=== PATIENT | female | born 2000 | race Caucasian/White ===

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

== ENCOUNTER 2022-02-20 07:55 | Emergency (ER) | payer OTHER ==
[~2022-02-20] VITALS: Ht 152.4 cm; Wt 47.9 kg
[~2022-02-20 07:55] MED LIST changes: +ONDA-188 PO; +POTA20TA PO
[2022-02-20 07:58] VITALS: BP 128/85
[2022-02-20] MEDS ORDERED: ONDANSETRON 4 MG ODT PO ONE (08:10)
[2022-02-20] MEDS ORDERED: ALBUTEROL SULFATE/IPRATROPIU 3 ML SOL IH ONE (09:05)
[2022-02-20] MEDS ORDERED: ALBUTEROL 0.083% 2.5 MG/3 ML NEBU INH ONE (09:05)
[2022-02-20] MEDS ORDERED: NACL 0.9% 1,000 ML IV ONE (09:15)
[2022-02-20] MEDS ORDERED: ONDANSETRON 4 MG/2 ML VIAL IVP ONE (09:15)
[2022-02-20] MEDS ORDERED: KETOROLAC 30 MG/ML VIAL IVP ONE (10:00)
[2022-02-20] MEDS ORDERED: diphenhydrAMINE 50 MG/ML VIAL IVP ONE (11:05)
[2022-02-20] MEDS ORDERED: METOCLOPRAMIDE 10 MG/2 ML INJ VIAL IVP ONE (11:05)
[2022-02-20] MEDS ORDERED: ONDA8TAB87 PO (13:01)
[2022-02-20] MEDS ORDERED: IBUP-2213 PO (13:01)
[2022-02-20 13:14] VITALS: BP 111/56
== END 2022-02-20 13:14 | disposition home or self-care (01) ==
LOC: MED 07:55
DX: R07.89 Other chest pain (principal); R11.2 Nausea with vomiting, unspecified; R06.02 Shortness of breath; J45.909 Unspecified asthma, uncomplicated; Z79.899 Other long term (current) drug therapy
CPT/HCPCS: 81002; 81025; 93005; 94640; 94664; 96361; 96374; 96375; 99285; J1200; J1885; J2405; J2765; J7030; J7613; Q0162

== ENCOUNTER 2022-08-17 23:55 | Inpatient (IN) | payer OTHER ==
[~2022-08-17] VITALS: Ht 152.4 cm; Wt 52.6 kg
[~2022-08-17 23:55] MED LIST changes: +IBUP-2213 PO; +ONDA8TAB87 PO
[2022-08-18 00:16] VITALS: BP 100/60
--- NOTE | 2022-08-18 00:20 | NUR ---
TO BED 9 FOLLOWING TRIAGE
[2022-08-18] MEDS ORDERED: LORazepam 0.5 MG TAB PO ONE (00:35)
[2022-08-18] MEDS ORDERED: ONDANSETRON 4 MG ODT PO ONE (00:35)
[2022-08-18 00:44] LABS: APPEARANCE,URINE SL CLOUDY (CLEAR); BILIRUBIN,URINE NEGATIVE (NEGATIVE); BLOOD, URINE NEGATIVE (NEGATIVE); COLOR,URINE YELLOW (YELLOW); LEUKOCYTE ESTERASE ,URINE NEGATIVE (NEGATIVE); NITRITE, URINE NEGATIVE (NEGATIVE); PH,URINE 8.5 (5.0-9.0); UGLUCOSE NEGATIVE (NEGATIVE)
--- NOTE | 2022-08-18 00:44 | NUR ---
UA SENT TO LAB
[2022-08-18] MEDS ORDERED: FAMOTIDINE 20 MG/2 ML VIAL IVP ONE (01:05)
[2022-08-18] MEDS ORDERED: METOCLOPRAMIDE 10 MG/2 ML INJ VIAL IVP ONE (01:05)
[2022-08-18] MEDS ORDERED: NACL 0.9% 1,000 ML IV ONE ×3 (01:05→04:45)
[2022-08-18] MEDS ORDERED: diphenhydrAMINE 50 MG/ML VIAL IVP ONE (01:05)
--- NOTE | 2022-08-18 01:16 | NUR ---
20G TO LT UPPER ARM ESTABLISHED. BLOOD DRAWN VIA IV START
[2022-08-18 01:24] LABS: BASOPHILS % (AUTO) 0.1 % (0.0-2.0); EOSINOPHILS % (AUTO) 0.2 % (0.0-4.0); HEMATOCRIT 39.5 % (36-48); HEMOGLOBIN 13.3 g/dL (12.0-16.0); LYMPHOCYTES # (AUTO) 0.6 K/uL (2.5-16.5); LYMPHOCYTES % (AUTO) 3.3 % (20.5-51.1); MEAN CORPUSCULAR HEMOGLOBIN 30 pg (27-31); MEAN CORPUSCULAR HGB CONC 34 g/dL (33-37); MONOCYTES # (AUTO) 1.2 K/uL (0.8-1.0); MONOCYTES % (AUTO) 6.1 % (1.7-9.3); NEUTROPHILS # (AUTO) 17.2 K/uL (1.8-7.7); NEUTROPHILS % (AUTO) 90.3 % (42.2-75.2); PLATELET COUNT (AUTO) 240 K/uL (140-450); RED BLOOD CELL COUNT(AUTO) 4.49 MIL/uL (4.20-5.40); RED CELL DISTRIBUTION WIDTH 13.7 % (11.6-13.7); WHITE BLOOD COUNT (AUTO) 19.1 K/uL (4.5-11.0)
[2022-08-18 02:00] LABS: BARBITURATE, URINE NEGATIVE ng/ml (NEG <=200); BENZODIAZEPINE, URINE NEGATIVE ng/mL (NEG <=200); CANNABINOID, URINE POSITIVE ng/mL (NEG <=50); COCAINE, URINE NEGATIVE ng/mL (NEG <=300); OPIATE, URINE NEGATIVE ng/mL (NEG <=2000); PHENCYCLIDINE SCREEN,URINE NEGATIVE ng/mL (NEG <=25)
[2022-08-18 02:02] LABS: ALBUMIN 4.9 g/dL (3.4-5.0)
[2022-08-18 02:07] LABS: ANION GAP 26.4 (8-16); CARBON DIOXIDE 17.6 mmol/L (21-32); CREATININE 0.7 mg/dL (0.6-1.3)
[2022-08-18] MEDS ORDERED: LORazepam 2 MG/ML VIAL IVP ONE (02:10)
[2022-08-18] MEDS ORDERED: HALOPERIDOL IM 5 MG/ML VIAL IVP ONE (02:10)
[2022-08-18 02:35] LABS: TOTAL BILIRUBIN 2.1 mg/dL (0.0-1.0)
[2022-08-18] MEDS ORDERED: POTASSIUM CHLORIDE 10 MEQ TABER PO ONE ×2 (02:35→04:46)
--- NOTE | 2022-08-18 04:58 | NUR ---
PT UNABLE TO DRINK WATER OR TAKE MEDICATION WITHOUT VOMITING. DR. SIMENTAL AWARE AND WILL ADMIT.
[2022-08-18] MEDS ORDERED: HALOPERIDOL IM 5 MG/ML VIAL ONE (05:03)
--- NOTE | 2022-08-18 06:30 | NUR ---
Patient appears to be resting comfortably in bed. Vital Signs within normal limits. Respirations even and unlabored.
--- NOTE | 2022-08-18 06:39 | NUR ---
MOTHER ALLOWED AT BEDSIDE WITH PT FOR A BRIEF VISIT. UPDATED MOTHER ON POC OK WITH PT. AWIAITING BED ASSIGNMENT
[2022-08-18 06:43] VITALS: BP 113/70
--- NOTE | 2022-08-18 07:25 | NUR ---
Report recieved from COY Jackson for transfer of care.
--- NOTE | 2022-08-18 07:29 | NUR ---
REPORT TO YUNG CESPEDES
[2022-08-18] MEDS ORDERED: ZOLPIDEM 10 MG TAB PO PRN (08:25)
[2022-08-18] MEDS ORDERED: MORPHINE SULFATE 2 MG/ML SYR IVP PRN (08:25)
[2022-08-18] MEDS ORDERED: MAG SULF 2000 MG/WATER PREMIX 50 ML IV PRN (08:25)
[2022-08-18] MEDS ORDERED: ONDANSETRON 4 MG/2 ML VIAL IVP PRN (08:25)
[2022-08-18] MEDS ORDERED: DOCUSATE SODIUM 100 MG GELCAP PO PRN (08:25)
[2022-08-18] MEDS ORDERED: LORazepam 2 MG/ML VIAL IVP PRN (08:25)
[2022-08-18] MEDS ORDERED: POTASSIUM CHLORIDE 10 MEQ TABER PO PRN (08:25)
[2022-08-18] MEDS ORDERED: ACETAMINOPHEN 325 MG TAB PO PRN (08:25)
[2022-08-18] MEDS ORDERED: NACL 0.9% 1,000 ML IV SCH (08:25)
--- NOTE | 2022-08-18 10:11 | NUR ---
Patient ambulated to restroom with steady gait.
--- NOTE | 2022-08-18 10:20 | NUR ---
PT ASKING ABOUT HER BELONGINGS, CALLED PTS MOTHER-RAJ, STATED SHE TOOK HER BELONGINGS WHEN SHE VISITED. PT MADE AWARE.
--- NOTE | 2022-08-18 10:30 | NUR ---
PATIENT HAS BEEN SCREENED AND CATEGORIZED MODERATE NUTRITION RISK. PATIENT WILL BE SEEN WITHIN 3-5 DAYS OF ADMISSION. REVIEWED BY DELROY GODDARD RD
--- NOTE | 2022-08-18 11:15 | NUR ---
PT MOVED TO ER BED 8
--- NOTE | 2022-08-18 13:15 | NUR ---
Patient requesting to leave. Explained to patient no dischage orders at this time. Explained Dr. Griffith is not here to explain AMA. Patient still wanted to leave AMA. Dr. Griffith notified.
--- NOTE | 2022-08-18 13:15 | NUR ---
Note glenna in ED - 08/18/22 at 1342 by VANESSA Patient does not wish to proceed with medical care recommended by Dr. Griffith. Patient given information related to possible complications, up to and including , which could occur as a result of leaving hospital at this time. Patient verbalizes understanding of risks involved leaving against medical advice. Patient has signed AMA form.
== END 2022-08-18 13:15 | disposition left against medical advice (07) | DRG 249 ==
LOC: MED 23:55 → MMU 08-18 06:06
PROVIDERS: ADMIT Family Medicine; ATTEND Family Medicine
DX: R11.10 Vomiting, unspecified (principal); E87.20 Acidosis, unspecified; E86.0 Dehydration; Z20.822 Contact with and (suspected) exposure to COVID-19; J45.909 Unspecified asthma, uncomplicated; E87.6 Hypokalemia; Z53.29 Procedure and treatment not carried out because of patient's decision for other reasons; F12.920 Cannabis use, unspecified with intoxication, uncomplicated
CPT/HCPCS: 36415; 80053; 80305; 81003; 83690; 85025; 96361; 96372; 96374; 96375; 99291; J1200; J1630; J2060; J2765; J3490; J7030; Q0162

== ENCOUNTER 2022-11-03 13:23 | Emergency (ER) | payer OTHER ==
[~2022-11-03] VITALS: Ht 152.4 cm; Wt 51.3 kg
[2022-11-03 13:39] VITALS: BP 124/65
--- NOTE | 2022-11-03 14:50 | NUR ---
TO ER BED 9
[2022-11-03 15:05] LABS: APPEARANCE,URINE CLEAR (CLEAR); BILIRUBIN,URINE NEGATIVE (NEGATIVE); BLOOD, URINE NEGATIVE (NEGATIVE); COLOR,URINE YELLOW (YELLOW); LEUKOCYTE ESTERASE ,URINE NEGATIVE (NEGATIVE); NITRITE, URINE NEGATIVE (NEGATIVE); UGLUCOSE NEGATIVE (NEGATIVE)
[2022-11-03] MEDS ORDERED: ONDANSETRON 4 MG ODT PO ONE (15:20)
[2022-11-03] MEDS ORDERED: IBUP-2213 PO (15:29)
[2022-11-03] MEDS ORDERED: ONDA8TAB87 PO (15:29)
[2022-11-03] MEDS ORDERED: LOPE-289 PO (15:29)
[2022-11-03] MEDS ORDERED: OMEP40EC24 PO (15:29)
[2022-11-03] MEDS ORDERED: ONDANSETRON 4 MG/2 ML VIAL IVP ONE ×2 (15:35→16:10)
[2022-11-03] MEDS ORDERED: NACL 0.9% 1,000 ML IV ONE (15:35)
[2022-11-03] MEDS ORDERED: ONDANSETRON 4 MG/2 ML VIAL ONE (15:36)
[2022-11-03] MEDS ORDERED: HALOPERIDOL IM 5 MG/ML VIAL IM ONE (16:40)
--- NOTE | 2022-11-03 17:13 | NUR ---
NO RELIEF FROM ZOFRAN IV. ADMITS TO CHRONIC THC USE. AMBULATES TO BR TO VOID URINE, KEEPS ADKING TO DRINK HER GATORADE EVEN WHEN VOMITING
--- NOTE | 2022-11-03 17:34 | NUR ---
Patient discharged with v/s stable. Written and verbal after care instructions given and explained. Patient verbalized understanding. Ambulatory with steady gait. All questions addressed prior to discharge. Advised to follow up with PMD.
== END 2022-11-03 17:33 | disposition home or self-care (01) ==
LOC: MED 13:23
DX: R11.2 Nausea with vomiting, unspecified (principal); R19.7 Diarrhea, unspecified; R10.13 Epigastric pain; J45.909 Unspecified asthma, uncomplicated; F12.90 Cannabis use, unspecified, uncomplicated; Z79.1 Long term (current) use of non-steroidal anti-inflammatories (NSAID); Z79.899 Other long term (current) drug therapy
CPT/HCPCS: 81003; 81025; 96361; 96372; 96374; 96376; 99284; J1630; J2405; J7030; Q0162

== ENCOUNTER 2022-11-03 18:37 | Inpatient (IN) | payer OTHER ==
[~2022-11-03] VITALS: Ht 152.4 cm; Wt 51.3 kg
[~2022-11-03 18:37] MED LIST changes: +LOPE-289 PO; +OMEP40EC24 PO
[2022-11-03 18:42] VITALS: BP 122/78
[2022-11-03] MEDS ORDERED: ONDANSETRON 4 MG/2 ML VIAL IVP ONE ×2 (18:45→21:10)
--- NOTE | 2022-11-03 18:45 | NUR ---
PT AMB TO BED 3
--- NOTE | 2022-11-03 18:49 | NUR ---
LAB AT BEDSIDE
[2022-11-03 18:54] LABS: BASOPHILS % (AUTO) 0.2 % (0.0-2.0); EOSINOPHILS % (AUTO) 0.2 % (0.0-4.0); HEMATOCRIT 40.8 % (36-48); HEMOGLOBIN 13.5 g/dL (12.0-16.0); LYMPHOCYTES # (AUTO) 0.5 K/uL (2.5-16.5); LYMPHOCYTES % (AUTO) 2.1 % (20.5-51.1); MEAN CORPUSCULAR HEMOGLOBIN 29 pg (27-31); MEAN CORPUSCULAR HGB CONC 33 g/dL (33-37); MEAN CORPUSCULAR VOLUME 87.1 fL (80-94); MONOCYTES # (AUTO) 0.9 K/uL (0.8-1.0); NEUTROPHILS # (AUTO) 20.1 K/uL (1.8-7.7); NEUTROPHILS % (AUTO) 93.5 % (42.2-75.2); PLATELET COUNT (AUTO) 270 K/uL (140-450); RED BLOOD CELL COUNT(AUTO) 4.69 MIL/uL (4.20-5.40); RED CELL DISTRIBUTION WIDTH 13.6 % (11.6-13.7); WHITE BLOOD COUNT (AUTO) 21.5 K/uL (4.5-11.0)
[2022-11-03] MEDS ORDERED: NACL 0.9% 1,000 ML IV ONE (18:55)
--- NOTE | 2022-11-03 19:06 | NUR ---
XRAY AT BEDSIDE
[2022-11-03] MEDS ORDERED: LORazepam 2 MG/ML VIAL IVP ONE (19:10)
[2022-11-03 19:20] LABS: ALBUMIN 4.6 g/dL (3.4-5.0); ANION GAP 20.8 (8-16); CARBON DIOXIDE 19.3 mmol/L (21-32); CREATININE 0.9 mg/dL (0.6-1.3); POTASSIUM 3.1 mmol/L (3.5-5.1); TOTAL BILIRUBIN 2.4 mg/dL (0.0-1.0)
--- NOTE | 2022-11-03 19:21 | NUR ---
REPORT GIVEN TO KYLE RN. TRANSFER OF CARE AT THIS TIME
--- NOTE | 2022-11-03 19:30 | NUR ---
COVID-19 swab and urine sample collected and sent to lab
[2022-11-03 19:58] LABS: APPEARANCE,URINE CLEAR (CLEAR); BILIRUBIN,URINE NEGATIVE (NEGATIVE); BLOOD, URINE 1+ (NEGATIVE); COLOR,URINE YELLOW (YELLOW); LEUKOCYTE ESTERASE ,URINE NEGATIVE (NEGATIVE); NITRITE, URINE NEGATIVE (NEGATIVE); UGLUCOSE NEGATIVE (NEGATIVE)
[2022-11-03 20:13] LABS: WBC,URINE 0-5 /HPF (0-5)
--- NOTE | 2022-11-03 20:44 | NUR ---
PT AMBULATED TO RR AND BACK TO BED WITH STEADY GAIT
--- NOTE | 2022-11-03 20:50 | NUR ---
PT MOVED TO ER BED 6
--- NOTE | 2022-11-03 21:02 | NUR ---
Patient reported, nausea, no relief, Dr. Mckinney notified.
[2022-11-03] MEDS ORDERED: ONDANSETRON 4 MG/2 ML VIAL IVP PRN (21:20)
[2022-11-03] MEDS ORDERED: KCL 20 MEQ IN 100 mL PREMIX 200 ML IV PRN (21:20)
[2022-11-03] MEDS ORDERED: MORPHINE SULFATE 4 MG/ML SYR IVP PRN (21:20)
[2022-11-03] MEDS ORDERED: METOCLOPRAMIDE 10 MG/2 ML INJ VIAL IVP PRN (21:20)
[2022-11-03] MEDS ORDERED: MAGNESIUM OXIDE 400 MG TAB PO PRN (21:20)
[2022-11-03] MEDS ORDERED: POTASSIUM CHLORIDE 10 MEQ TABER PO PRN (21:20)
[2022-11-03] MEDS ORDERED: MAG SULF 2000 MG/WATER PREMIX 50 ML IV PRN (21:20)
--- NOTE | 2022-11-03 21:45 | NUR ---
Patient will be admitted to care of Dr. Moran. Admited to M/S. Will go to room 105B. Belongings list completed. Report to COY Gastelum.
[2022-11-03] MEDS: NACL 0.9% 1,000 ML IV SCH (21:52)
--- NOTE | 2022-11-03 21:55 | NUR ---
ADMITTED A 22 Y/O FEMALE FROM ER WITH THE CC: NAUSEA, VOMITING , DIARRHEA. PATIENT IS AAOX4. NO SOB NOTED. RESPIRATION EVEN UNLABORED ON ROOM AIR SATING 100%. NO COMPLAINTS OF PAIN AT THIS TIME. ALL SAFETY PRECAUTIONS ARE IN PLACE. CALL LIGHT WITHIN REACH. MRSA SCREENING DONE. NEEDS ATTENDED TO.
[2022-11-04 06:44] LABS: BASOPHILS % (AUTO) 0.1 % (0.0-2.0); HEMATOCRIT 36.5 % (36-48); LYMPHOCYTES # (AUTO) 1.1 K/uL (2.5-16.5); LYMPHOCYTES % (AUTO) 7.1 % (20.5-51.1); MEAN CORPUSCULAR HEMOGLOBIN 29 pg (27-31); MEAN CORPUSCULAR HGB CONC 33 g/dL (33-37); MEAN CORPUSCULAR VOLUME 86.7 fL (80-94); MONOCYTES # (AUTO) 0.7 K/uL (0.8-1.0); MONOCYTES % (AUTO) 4.3 % (1.7-9.3); NEUTROPHILS # (AUTO) 14.2 K/uL (1.8-7.7); NEUTROPHILS % (AUTO) 88.5 % (42.2-75.2); PLATELET COUNT (AUTO) 254 K/uL (140-450); RED BLOOD CELL COUNT(AUTO) 4.21 MIL/uL (4.20-5.40); RED CELL DISTRIBUTION WIDTH 14.4 % (11.6-13.7)
--- NOTE | 2022-11-04 07:26 | NUR ---
PATIENT HAS NO EPISODE OF VOMITING AND DIARRHEA THROUGHOUT THE NIGHT.
--- NOTE | 2022-11-04 07:28 | NUR ---
GAVE REPORT TO MORNING SHIFT NURSE FOR CONTINUITY OF CARE. PATIENT STABLE.
--- NOTE | 2022-11-04 07:32 | NUR ---
RECEIVED PT CARE AND REPORT FROM ROBERT CESPEDES. PT IS SITTING UP IN BED. A&OX4, APPEARS CALM. REQUESTING TO BE DISCONNECTED FROM IV TO USE THE RESTROOM. NO VISIBLE S/S OF DISTRESS OR DISCOMFORT. DENIES PAIN OR SOB. CALL LIGHT WITHIN REACH, ALL NEEDS MET AT THIS TIME. WILL CONNECT TO IV UPON RETURN FROM BATHROOM.
[2022-11-04 08:00] VITALS: BP 109/50
[2022-11-04 08:16] LABS: ALBUMIN 3.9 g/dL (3.4-5.0); ANION GAP 15.8 (8-16); CARBON DIOXIDE 24.9 mmol/L (21-32); CREATININE 0.7 mg/dL (0.6-1.3); MAGNESIUM 1.4 mg/dL (1.8-2.4); PHOSPHORUS 5.2 mg/dL (2.5-4.9); POTASSIUM 3.7 mmol/L (3.5-5.1); TOTAL BILIRUBIN 2.2 mg/dL (0.0-1.0)
--- NOTE | 2022-11-04 08:58 | NUR ---
PATIENT HAS BEEN SCREENED AND CATEGORIZED LOW NUTRITION RISK. PATIENT WILL BE SEEN WITHIN 7 DAYS OF ADMISSION. 11/10/[address] REVIEWED BY [address]ROY [address]DARD RD
--- NOTE | 2022-11-04 09:09 | NUR ---
TEXTED DR. BEATTY TO REPORT MAGNESIUM LEVEL OF 1.4 AND PHOSPHORUS LEVEL OF 5.2. AWAITING ORDERS.
[2022-11-04] MEDS: NACL 0.9% 1,000 ML IV SCH ×2 (09:52→22:20)
--- NOTE | 2022-11-04 12:14 | NUR ---
NEW IV STARTED IN LEFT HAND 22G BY STUDENTS X3 ATTEMPTS. SKIN INTACT AT PREVIOUS ATTEMPT SITES WITH CATHETER INTACT.
[2022-11-04 16:00] VITALS: BP 106/62
[2022-11-04] MEDS ORDERED: ONDANSETRON 4 MG ODT SL SCH (16:30)
--- NOTE | 2022-11-04 17:45 | NUR ---
RECEIVED CALL FROM CRISTA AT [facility] OFFICE TO RECEIVE UPDATE ON PATIENT. CALL BACK NUMBER [phone]
--- NOTE | 2022-11-04 18:42 | NUR ---
PT IS RESTING ON RIGHT SIDE WITH OU CLOSED. NO VISIBLE S/S OF DISTRESS, DISCOMFORT, PAIN OR SOB. PT ATE APPLE SAUCE AND DRANK JUICE WITH NO COMPLAINTS OF NAUSEA OR VOMITING. AWAITING ABD US RESULTS. CALL LIGHT IS WITHIN REACH, ALL NEEDS MET AT THIS TIME. WILL ENDORSE TO NOC SHIFT NURSE.
[2022-11-04 18:54] LABS: ANION GAP 11.6 (8-16); CARBON DIOXIDE 27.5 mmol/L (21-32); CREATININE 0.7 mg/dL (0.6-1.3); POTASSIUM 3.1 mmol/L (3.5-5.1)
--- NOTE | 2022-11-04 20:10 | NUR ---
PATIENT IN BED RESTING WITH O2 AT 2L NC. NO S/S OF RESPIRATORY DISTRESS. BREATHING NORMAL WITH SYMMETRICAL RISE AND FALL OF THE CHEST. NO COMPLAINTS OF PAIN OR ANY DISCOMFORT AT THIS TIME. IVF NS 50 ML/HR INFUSING IN THE RIGHT WRIST. CALL LIGHT ON EASY REACH. PATIENT IS AMBULATORY.
[2022-11-04] MEDS ORDERED: POTASSIUM CHLORIDE 10 MEQ TABER PO ONE (22:20)
--- NOTE | 2022-11-04 22:32 | NUR ---
ADMINISTERED K-DUR ORDERED.
[2022-11-04 23:15] VITALS: BP 117/69
--- NOTE | 2022-11-04 23:30 | NUR ---
DISCHARGED PATIENT TO HOME IN STABLE CONDITION ACCOMPANIED BY HER BOYFRIEND. Addendum: 11/04/22 at 2342 by Oriana Brown RN RN ACCOMPANIED BY HIS BOYFRIENAnderson
== END 2022-11-04 23:30 | disposition home or self-care (01) | DRG 463 ==
LOC: MED 18:37 → OBSVTOIN 21:20 → MTU 21:20
PROVIDERS: ADMIT Hospitalist; ATTEND Hospitalist
DX: N12 Tubulo-interstitial nephritis, not specified as acute or chronic (principal); D64.9 Anemia, unspecified; J45.909 Unspecified asthma, uncomplicated; F12.90 Cannabis use, unspecified, uncomplicated; Z20.822 Contact with and (suspected) exposure to COVID-19; E87.6 Hypokalemia; D72.829 Elevated white blood cell count, unspecified; Z79.1 Long term (current) use of non-steroidal anti-inflammatories (NSAID); Z79.899 Other long term (current) drug therapy; R11.10 Vomiting, unspecified
CPT/HCPCS: 36415; 71045; 76705; 76770; 80048; 80053; 81001; 83036; 83690; 83735; 84100; 85025; 87081; 87086; 96361; 96374; 96375; 99285; J0696; J1644; J2060; J2270; J2405; J3475; J7060; Q0092; Q0162

== ENCOUNTER 2022-11-08 10:42 | Emergency (ER) | payer OTHER ==
[~2022-11-08] VITALS: Ht 152.4 cm; Wt 48.5 kg
[~2022-11-08 10:42] MED LIST changes: -IBUP-2213 PO
[2022-11-08 10:48] VITALS: BP 142/82
--- NOTE | 2022-11-08 10:54 | NUR ---
PT AMBULATED TO BED 6
[2022-11-08] MEDS ORDERED: NACL 0.9% 1,000 ML IV SCH (11:10)
--- NOTE | 2022-11-08 11:10 | NUR ---
22YO FEMALE PT C/O N/V/D-blood AND ABD PAIN [id number]. STATES SOB AND PRESSURED CHEST PAIN W/ PAIN AT MOST ON N/V. PT PREVIOUSLY SEEN IN ER FOR S/S , ADMITTED ON 11/05 D/T CYCLIC VOMITING AND D/C W/ RX AMOXICILLIN FOR UTI/PYLENOPHRITIS. STATES BEING COMPLIANT W/ RX SINCE DC UNTIL TODAY. STATES GOING TO PCP PRIOR TO ARRIVAL AND RECOMMENDED BY PCP TO COME ER FOR ONGOING SYMPTOMS. DENIES FEVER, CHILLS, OR RECENT DRUG USE. PT AAOX4, ON PLASTIC FINISHER. O2 -100% RA. HX: ASTHMA, ANXIETY, H.PYLORI NKA
--- NOTE | 2022-11-08 11:23 | NUR ---
MD PEDRAZA AT BEDSIDE FOR EVALUATION
[2022-11-08] MEDS ORDERED: diphenhydrAMINE 50 MG/ML VIAL IM ONE (11:30)
[2022-11-08] MEDS ORDERED: HALOPERIDOL IM 5 MG/ML VIAL IM ONE (11:30)
[2022-11-08] MEDS ORDERED: METOCLOPRAMIDE 10 MG/2 ML INJ VIAL IVP ONE ×2 (11:30→14:00)
[2022-11-08] MEDS ORDERED: FAMOTIDINE 20 MG/2 ML VIAL IVP ONE (11:30)
--- NOTE | 2022-11-08 11:45 | NUR ---
pt amb to restroom
--- NOTE | 2022-11-08 11:50 | NUR ---
pt amb back to room
[2022-11-08] MEDS ORDERED: FAMOTIDINE 20 MG/2 ML VIAL ONE (12:15)
[2022-11-08 12:20] LABS: APPEARANCE,URINE CLEAR (CLEAR); BILIRUBIN,URINE NEGATIVE (NEGATIVE); BLOOD, URINE 3+ (NEGATIVE); COLOR,URINE YELLOW (YELLOW); LEUKOCYTE ESTERASE ,URINE TRACE (NEGATIVE); NITRITE, URINE NEGATIVE (NEGATIVE); PH,URINE 8.5 (5.0-9.0); UGLUCOSE NEGATIVE (NEGATIVE)
[2022-11-08 12:29] LABS: BASOPHILS # (AUTO) 0.1 K/uL (0.00-0.22); BASOPHILS % (AUTO) 0.4 % (0.0-2.0); EOSINOPHILS % (AUTO) 0.1 % (0.0-4.0); HEMATOCRIT 43.2 % (36-48); HEMOGLOBIN 14.4 g/dL (12.0-16.0); LYMPHOCYTES # (AUTO) 0.9 K/uL (2.5-16.5); LYMPHOCYTES % (AUTO) 5.7 % (20.5-51.1); MEAN CORPUSCULAR HEMOGLOBIN 29 pg (27-31); MEAN CORPUSCULAR HGB CONC 33 g/dL (33-37); MEAN CORPUSCULAR VOLUME 86.8 fL (80-94); MONOCYTES # (AUTO) 0.6 K/uL (0.8-1.0); NEUTROPHILS % (AUTO) 89.8 % (42.2-75.2); PLATELET COUNT (AUTO) 305 K/uL (140-450); RED BLOOD CELL COUNT(AUTO) 4.98 MIL/uL (4.20-5.40); RED CELL DISTRIBUTION WIDTH 13.7 % (11.6-13.7); WHITE BLOOD COUNT (AUTO) 15.6 K/uL (4.5-11.0)
--- NOTE | 2022-11-08 12:39 | NUR ---
DRUG RESOURCE PACKET PROVIDED TO PT BY VEE EVANGELISTA
--- NOTE | 2022-11-08 12:45 | NUR ---
PT CONTINUOUSLY REQUESTING OXYGEN. SPO2 100% RR 15 ON MONITOR. NO OXYGEN NEEDED PER DR PEDRAZA.
[2022-11-08 12:51] LABS: RBC,URINE >100 /HPF (0-5); WBC,URINE 0-5 /HPF (0-5)
[2022-11-08 12:52] LABS: BARBITURATE, URINE NEGATIVE ng/ml (NEG <=200); BENZODIAZEPINE, URINE NEGATIVE ng/mL (NEG <=200); CANNABINOID, URINE POSITIVE ng/mL (NEG <=50); COCAINE, URINE NEGATIVE ng/mL (NEG <=300); OPIATE, URINE NEGATIVE ng/mL (NEG <=2000); PHENCYCLIDINE SCREEN,URINE NEGATIVE ng/mL (NEG <=25)
[2022-11-08 12:57] LABS: ANION GAP 21.6 (8-16); CARBON DIOXIDE 21.5 mmol/L (21-32); POTASSIUM 3.1 mmol/L (3.5-5.1); TOTAL BILIRUBIN 2.9 mg/dL (0.0-1.0)
[2022-11-08 13:26] VITALS: BP 128/73
[2022-11-08] MEDS ORDERED: POTASSIUM CHLORIDE 10 MEQ TABER PO ONE (14:00)
[2022-11-08] MEDS ORDERED: MAGNESIUM OXIDE 400 MG TAB PO ONE (14:00)
[2022-11-08] MEDS ORDERED: METOCLOPRAMIDE 10 MG/2 ML INJ VIAL ONE (14:03)
[2022-11-08] MEDS ORDERED: METO-485 PO (14:21)
[2022-11-08] MEDS ORDERED: FAMO-92 PO (14:21)
--- NOTE | 2022-11-08 14:32 | NUR ---
PO MEDS GIVEN. PT TOLERATED WELL
--- NOTE | 2022-11-08 14:33 | NUR ---
IV removed, catheter intact and site benign. Applied folded 4x4 gauze and tape to stop bleeding.
--- NOTE | 2022-11-08 14:34 | NUR ---
Patient discharged with v/s stable. 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 Patient alert, oriented and verbalized understanding of instructions. Ambulatory with steady gait. All questions addressed prior to discharge. ID band removed. Patient advised to follow up with PMD. Rx of PEPCID AND REGLAN given. Opportunity to ask questions provided and answered.
--- NOTE | 2022-11-08 14:43 | NUR ---
The patient's care was reviewed and supervised by Elvia Ahmadi RN.
== END 2022-11-08 14:34 | disposition home or self-care (01) ==
LOC: MED 10:42
DX: R11.2 Nausea with vomiting, unspecified (principal); A04.8 Other specified bacterial intestinal infections; J45.909 Unspecified asthma, uncomplicated; E11.9 Type 2 diabetes mellitus without complications; F12.90 Cannabis use, unspecified, uncomplicated; F17.200 Nicotine dependence, unspecified, uncomplicated; Z79.899 Other long term (current) drug therapy
CPT/HCPCS: 36415; 80053; 80305; 81001; 81025; 83690; 85025; 87086; 96361; 96372; 96374; 96375; 99284; J1200; J1630; J2765; J3490; J7030

== ENCOUNTER 2023-08-24 00:45 | Emergency (ER) | payer OTHER ==
[~2023-08-24] VITALS: Ht 152.4 cm; Wt 53.1 kg
[~2023-08-24 00:45] MED LIST changes: +FAMO-92 PO; +METO-485 PO
[2023-08-24 01:06] VITALS: BP 115/65; PULSE 64; RESP 16; TEMP 98; O2SAT 100
[2023-08-24] MEDS ORDERED: ONDANSETRON 4 MG/2 ML VIAL IVP ONE (01:30)
[2023-08-24] MEDS ORDERED: NACL 0.9% 1,000 ML IV ONE (01:30)
[2023-08-24 01:36] LABS: BASOPHILS % (AUTO) 0.3 % (0.0-2.0); EOSINOPHILS % (AUTO) 0.2 % (0.0-4.0); HEMOGLOBIN 14.1 g/dL (12.0-16.0); LYMPHOCYTES # (AUTO) 1.2 K/uL (2.5-16.5); LYMPHOCYTES % (AUTO) 11.4 % (20.5-51.1); MEAN CORPUSCULAR HEMOGLOBIN 30 pg (27-31); MEAN CORPUSCULAR HGB CONC 35 g/dL (33-37); MEAN CORPUSCULAR VOLUME 88.1 fL (80-94); MONOCYTES # (AUTO) 0.6 K/uL (0.8-1.0); NEUTROPHILS # (AUTO) 8.7 K/uL (1.8-7.7); NEUTROPHILS % (AUTO) 82.1 % (42.2-75.2); PLATELET COUNT (AUTO) 291 K/uL (140-450); RED BLOOD CELL COUNT(AUTO) 4.65 MIL/uL (4.20-5.40); RED CELL DISTRIBUTION WIDTH 13.5 % (11.6-13.7); WHITE BLOOD COUNT (AUTO) 10.5 K/uL (4.8-10.8)
[2023-08-24] MEDS ORDERED: MIDAZOLAM 2 MG/2 ML VIAL IVP ONE (01:40)
[2023-08-24 01:47] LABS: ANION GAP 20.1 (8-16); CALCIUM 9.6 mg/dL (8.5-10.1); CARBON DIOXIDE 21.3 mmol/L (21-32); CREATININE 0.8 mg/dL (0.6-1.3); POTASSIUM 3.4 mmol/L (3.5-5.1)
[2023-08-24 02:02] LABS: APPEARANCE,URINE CLEAR (CLEAR); BILIRUBIN,URINE NEGATIVE (NEGATIVE); BLOOD, URINE TRACE-I (NEGATIVE); COLOR,URINE YELLOW (YELLOW); LEUKOCYTE ESTERASE ,URINE NEGATIVE (NEGATIVE); NITRITE, URINE NEGATIVE (NEGATIVE); PROTEIN,URINE 1+ (NEGATIVE); UGLUCOSE NEGATIVE (NEGATIVE); UROBILINOGEN,URINE 0.2 EU/dL (0.2 - 1)
[2023-08-24 02:12] LABS: BACTERIA,URINE >30 (MANY) /HPF (None Seen); MUCUS,URINE 1+ /LPF (None Seen); RBC,URINE 0-5 /HPF (0-5); WBC,URINE 0-5 /HPF (0-5)
[2023-08-24 03:12] LABS: ALBUMIN 4.3 g/dL (3.4-5.0); BILIRUBIN,DIRECT 0.3 mg/dL (0.0-0.3); MAGNESIUM 1.5 mg/dL (1.8-2.4); TOTAL BILIRUBIN 1.6 mg/dL (0.0-1.0)
[2023-08-24 03:13] LABS: PHOSPHORUS 0.8 mg/dL (2.5-4.9)
[2023-08-24] MEDS ORDERED: SODIUM PHOS / POTASSIUM PHOS 1 PKT PDR PO ONE (03:15)
[2023-08-24] MEDS ORDERED: ONDA-188 SL (03:19)
[2023-08-24 03:50] VITALS: BP 115/65; PULSE 64; RESP 16; TEMP 98; O2SAT 100
[2023-08-24] MEDS ORDERED: METO-485 PO (03:56)
== END 2023-08-24 03:50 | disposition home or self-care (01) ==
LOC: MED 00:45
DX: E83.39 Other disorders of phosphorus metabolism (principal); R11.10 Vomiting, unspecified; F12.90 Cannabis use, unspecified, uncomplicated; J45.909 Unspecified asthma, uncomplicated; Z71.6 Tobacco abuse counseling; Z79.899 Other long term (current) drug therapy
CPT/HCPCS: 36415; 80048; 80076; 81001; 81025; 83690; 83735; 84100; 85025; 96361; 96374; 96375; 99284; J2250; J2405; J7030

== ENCOUNTER 2023-09-13 21:01 | Emergency (ER) | payer OTHER ==
[~2023-09-13] VITALS: Ht 152.4 cm; Wt 51.7 kg
[~2023-09-13 21:01] MED LIST changes: +ONDA-188 SL
[2023-09-13 21:20] VITALS: BP 127/75; PULSE 85; RESP 17; TEMP 98; O2SAT 99
[2023-09-13 23:29] LABS: BASOPHILS # (AUTO) 0.1 K/uL (0.00-0.22); BASOPHILS % (AUTO) 0.6 % (0.0-2.0); EOSINOPHILS % (AUTO) 0.3 % (0.0-4.0); HEMATOCRIT 40.7 % (36-48); HEMOGLOBIN 13.9 g/dL (12.0-16.0); LYMPHOCYTES # (AUTO) 1.1 K/uL (2.5-16.5); LYMPHOCYTES % (AUTO) 11.8 % (20.5-51.1); MEAN CORPUSCULAR HEMOGLOBIN 30 pg (27-31); MEAN CORPUSCULAR HGB CONC 34 g/dL (33-37); MEAN CORPUSCULAR VOLUME 88.3 fL (80-94); MONOCYTES # (AUTO) 0.6 K/uL (0.8-1.0); MONOCYTES % (AUTO) 7.3 % (1.7-9.3); NEUTROPHILS # (AUTO) 7.2 K/uL (1.8-7.7); PLATELET COUNT (AUTO) 276 K/uL (140-450); RED BLOOD CELL COUNT(AUTO) 4.61 MIL/uL (4.20-5.40); RED CELL DISTRIBUTION WIDTH 13.1 % (11.6-13.7)
[2023-09-13 23:35] VITALS: O2SAT 99
[2023-09-13 23:50] LABS: ALBUMIN 4.1 g/dL (3.4-5.0); BILIRUBIN,DIRECT 0.3 mg/dL (0.0-0.3); TOTAL BILIRUBIN 1.8 mg/dL (0.0-1.0); TOTAL PROTEIN, SERUM 8.4 g/dL (6.4-8.2)
[2023-09-13 23:54] LABS: FLU A ANTIGEN negative (NEGATIVE); FLU B ANTIGEN NEGATIVE (NEGATIVE)
[2023-09-13 23:58] LABS: APPEARANCE,URINE CLEAR (CLEAR); BILIRUBIN,URINE NEGATIVE (NEGATIVE); BLOOD, URINE NEGATIVE (NEGATIVE); COLOR,URINE YELLOW (YELLOW); LEUKOCYTE ESTERASE ,URINE NEGATIVE (NEGATIVE); NITRITE, URINE NEGATIVE (NEGATIVE); PROTEIN,URINE NEGATIVE (NEGATIVE); UGLUCOSE NEGATIVE (NEGATIVE); UROBILINOGEN,URINE 0.2 EU/dL (0.2 - 1)
[2023-09-14 00:16] LABS: ANION GAP 13.4 (8-16); CALCIUM 8.9 mg/dL (8.5-10.1); CARBON DIOXIDE 28.3 mmol/L (21-32); POTASSIUM 3.7 mmol/L (3.5-5.1)
[2023-09-14] MEDS ORDERED: ONDA-188 PO (00:40)
[2023-09-14 01:08] VITALS: BP 116/76; PULSE 69; RESP 18; TEMP 97.9; O2SAT 99
== END 2023-09-14 01:08 | disposition home or self-care (01) ==
LOC: MED 21:01
DX: U07.1 COVID-19 (principal); J45.909 Unspecified asthma, uncomplicated; Z79.899 Other long term (current) drug therapy
CPT/HCPCS: 36415; 80048; 80076; 81003; 81025; 83690; 85025; 99283

== ENCOUNTER 2024-03-22 11:58 | Emergency (ER) | payer OTHER ==
[~2024-03-22] VITALS: Ht 152.4 cm; Wt 48.5 kg
[2024-03-22 12:19] VITALS: BP 118/78; PULSE 90; RESP 17; TEMP 98.6; O2SAT 98
[2024-03-22] MEDS: ONDANSETRON 4 MG ODT PO ONE (13:13)
[2024-03-22 13:15] LABS: BASOPHILS % (AUTO) 0.5 % (0.0-2.0); EOSINOPHILS # (AUTO) 0.1 K/uL (0-0.4); EOSINOPHILS % (AUTO) 1.2 % (0.0-4.0); HEMATOCRIT 43.4 % (36-48); HEMOGLOBIN 14.3 g/dL (12.0-16.0); LYMPHOCYTES % (AUTO) 12.5 % (20.5-51.1); MEAN CORPUSCULAR HEMOGLOBIN 29 pg (27-31); MEAN CORPUSCULAR HGB CONC 33 g/dL (33-37); MEAN CORPUSCULAR VOLUME 88.9 fL (80-94); MONOCYTES # (AUTO) 0.6 K/uL (0.8-1.0); MONOCYTES % (AUTO) 6.6 % (1.7-9.3); NEUTROPHILS # (AUTO) 6.6 K/uL (1.8-7.7); NEUTROPHILS % (AUTO) 79.2 % (42.2-75.2); PLATELET COUNT (AUTO) 266 K/uL (140-450); RED BLOOD CELL COUNT(AUTO) 4.88 MIL/uL (4.20-5.40); RED CELL DISTRIBUTION WIDTH 13.4 % (11.6-13.7); WHITE BLOOD COUNT (AUTO) 8.4 K/uL (4.8-10.8)
[2024-03-22 13:22] LABS: BILIRUBIN,URINE NEGATIVE (NEGATIVE); BLOOD, URINE NEGATIVE (NEGATIVE); COLOR,URINE YELLOW (YELLOW); LEUKOCYTE ESTERASE ,URINE 2+ (NEGATIVE); NITRITE, URINE NEGATIVE (NEGATIVE); PH,URINE >=9.0 (5.0-9.0); PROTEIN,URINE 1+ (NEGATIVE); UGLUCOSE NEGATIVE (NEGATIVE)
[2024-03-22 13:35] LABS: APPEARANCE,URINE HAZY (CLEAR)
[2024-03-22 13:37] LABS: RBC,URINE 0-5 /HPF (0-5)
[2024-03-22 13:38] LABS: BACTERIA,URINE 2+ /HPF (None Seen); MUCUS,URINE 1+ /LPF (None Seen); SQUAMOUS EPITHELIAL CELL,UR 80-100 /LPF (0-3 (FEW))
[2024-03-22 13:40] LABS: ALBUMIN 4.2 g/dL (3.4-5.0); BILIRUBIN,DIRECT 0.2 mg/dL (0.0-0.3); TOTAL BILIRUBIN 1.3 mg/dL (0.0-1.0)
[2024-03-22 13:44] LABS: ANION GAP 14.5 (8-16); CALCIUM 9.3 mg/dL (8.5-10.1); CARBON DIOXIDE 28.3 mmol/L (21-32); CREATININE 0.6 mg/dL (0.6-1.3); POTASSIUM 3.8 mmol/L (3.5-5.1)
[2024-03-22] MEDS ORDERED: ONDA-188 PO (13:58)
[2024-03-22] MEDS ORDERED: FAMO-90 PO (13:58)
[2024-03-22] MEDS ORDERED: CEPH-588 PO (14:12)
== END 2024-03-22 14:16 | disposition home or self-care (01) ==
LOC: MED 11:58
DX: N39.0 Urinary tract infection, site not specified (principal); E86.0 Dehydration; R10.13 Epigastric pain; J45.909 Unspecified asthma, uncomplicated; E11.9 Type 2 diabetes mellitus without complications; Z79.1 Long term (current) use of non-steroidal anti-inflammatories (NSAID); Z79.899 Other long term (current) drug therapy
CPT/HCPCS: 36415; 80048; 80076; 81001; 81025; 83690; 85025; 87086; 99283; Q0162